=== PATIENT | female | born 1940 | race Caucasian/White ===

== ENCOUNTER → 2021-04-18 10:59 | Outpatient (CLI) | payer MEDICARE, SELFPAY ==
[2021-04-18 20:34] LABS: Alanine Aminotransferase 16 IU/L (<35); Albumin Globulin Ratio 1.3 (1.0-2.8); Alkaline Phosphatase 59 U/L (38-126); Aspartate Aminotransferase 29 IU/L (14-36); BUN Creatinine Ratio 21.3 (6-22); Bilirubin Total 0.4 mg/dL (0.2-1.3); Blood Urea Nitrogen 19 mg/dL (7-17); C-Reactive Protein Quant 1.1 mg/dL (<1.0); Carbon Dioxide 28 mmol/L (22-32); Chloride 101 mmol/L (98-107); Estimated Glomerular Filt Rate > 60.0 mL/min (>60); Globulin 3.2 g/dL (1.7-4.1); Glucose 81 mg/dL (80-110); HEMOLYSIS < 15 (0-50); Potassium 4.9 mmol/L (3.4-5.1); Sodium 136 mmol/L (137-145); Total Protein 7.2 g/dL (6.3-8.2)
[2021-04-18 20:37] LABS: Erythrocyte Sedimentation Rate 17 MM/HR (0-20)
== END ==
PROVIDERS: PCP Physician Assistant; Visit Provider Physician Assistant
DX: I10 Essential (primary) hypertension (principal); M35.3 Polymyalgia rheumatica
CPT/HCPCS: 80053; 85651; 86140

== ENCOUNTER → 2021-05-27 11:04 | Outpatient (CLI) | payer MEDICARE, SELFPAY ==
[2021-05-27 20:42] LABS: Add Manual Diff / Slide Review NO; Basophils Absolute Auto 100 /uL (0-100); Basophils Percent Auto 0.4 % (0-2); Eosinophils Absolute Auto 100 /uL (0-450); Hematocrit 39.2 % (36-46); Hemoglobin 12.4 g/dL (12.0-16.0); Lymphocytes Absolute Auto 1700 /uL (1100-4500); Lymphocytes Percent Auto 11.1 % (25-40); Mean Corpuscular HGB Conc 31.6 % (30-36); Mean Corpuscular Hemoglobin 27.5 PG (26-34); Monocytes Absolute Auto 1100 /uL (0-900); Monocytes Percent Auto 7.2 % (3-14); Neutrophils Absolute Auto 12500 /uL (1500-7000); Neutrophils Percent Auto 80.3 % (50-75); Platelet Count 362 X10^3/uL (150-400); Red Blood Cell Count 4.51 X10^6/uL (4.0-5.2); Red Cell Distribution Width 13.8 % (11.6-14.8); White Blood Cell Count 15.5 X10^3/uL (4.5-11.0)
[2021-05-27 21:25] LABS: Thyroid Stimulating Hormone 2.44 uIU/mL (0.47-4.68)
[2021-05-27 21:45] LABS: Vitamin B12 362 pg/mL (239-931)
== END ==
PROVIDERS: PCP Physician Assistant; Referring Provider Physician Assistant; Visit Provider Physician Assistant
DX: D72.829 Elevated white blood cell count, unspecified (principal); I10 Essential (primary) hypertension; L65.9 Nonscarring hair loss, unspecified; M25.50 Pain in unspecified joint; R79.89 Other specified abnormal findings of blood chemistry
CPT/HCPCS: 82607; 84443; 85025